=== PATIENT | female | born 1995 | race Hispanic/Latino ===

== ENCOUNTER 2018-12-14 00:01 | Emergency (ER) | payer BC ==
--- NOTE | 2018-12-14 02:01 | ED PDOC ---
HPI: Wound Care - HPI Time Seen by Provider: 12/14/18 01:09 Chief Complaint (Nursing): Finger,Hand,&Wrist Chief Complaint (Provider): left hand 3rd digit laceration History Per: Patient, Family History Of Present Illness: 23 y/o female history of depression presents for evaluation of left hand middle finger sustained prior to arrival. Patient states she was at a bar and went to grab on to a metal window sill and lost her footing and cut finger. Denies numbness/weakness left upper extremity, limitation of movement. Tetanus up to date. Past Medical History Reviewed: Historical Data, Nursing Documentation, Vital Signs Vital Signs: Last Vital Signs Temp 98.2 F 12/14/18 00:11 Pulse 100 H 12/14/18 00:11 Resp 18 12/14/18 00:11 BP 139/96 H 12/14/18 00:11 Pulse Ox 99 12/14/18 00:11 - Medical History PMH: Depression - Surgical History Surgical History: No Surg Hx - Family History Family History: States: No Known Family Hx - Living Arrangements Living Arrangements: With Family - Allergies Allergies/Adverse Reactions: Allergies Allergy/AdvReac Type Severity Reaction Status Date / Time No Known Allergies Allergy Verified 12/14/18 00:11 Review of Systems ROS Statement: Except As Marked, All Systems Reviewed And Found Negative Musculoskeletal: Positive for: Hand Pain (left hand 3rd digit) Physical Exam - Reviewed Nursing Documentation Reviewed: Yes Vital Signs Reviewed: Yes - Physical Exam Appears: Positive for: Well, Non-toxic, No Acute Distress Pulses-Radial (L): 2+ Pulses-Radial (R): 2+ Extremity: Positive for: Normal ROM, Capillary Refill (<3 sec b/l UE), Other ([id number] irregular skin avulsion medial aspect left hand 3rd digit. 0.5cmx0.5cm skin avulsion volar left hand 3rd digit. FROM. Distal NV/motor intact) Neurological/Psych: Positive for: Awake, Alert, Oriented (x3) - ECG O2 Sat by Pulse Oximetry: 99 - Progress ED Course And Treament: -wound care Wound irrigated with 200mL NS, gelfoam applied to large skin avulsion, bacitracin applied to small skin avulsion. Telfa/cling applied to left hand 3rd digit Patient educated on wound care, advised follow up PMD Return precautions given Disposition - Clinical Impression Clinical Impression: Avulsion of skin of middle finger - Patient ED Disposition Is Patient to be Admitted: No Counseled Patient/Family Regarding: Diagnosis, Need For Followup - Disposition Disposition: Routine/Home Disposition Time: 02:25 Condition: STABLE Instructions: Wound Care
[2018-12-14] MEDS ORDERED: Absorbable Gelatin Sponge Size 12-7 ONE (02:15)
[2018-12-14 09:58] VITALS: BP 122/79; PULSE 99; RESP 17; TEMP 98.3; O2SAT 97
== END 2018-12-14 02:38 | disposition home or self-care (01) ==
LOC: H.ER 00:01
DX: S61.203A Unspecified open wound of left middle finger without damage to nail, initial encounter (principal); W26.8XXA Contact with other sharp object(s), not elsewhere classified, initial encounter; Y92.89 Other specified places as the place of occurrence of the external cause